=== PATIENT | male | born 1950 | race Caucasian/White ===

== ENCOUNTER 2018-11-21 15:50 | Inpatient (IN) | payer MEDICARE, OTHER ==
[~2018-11-21] VITALS: Ht 167.6 cm; Wt 72.8 kg
[~2018-11-21 15:50] MED LIST: AMLO-147 ORAL; ASPI-817 PO; ATOR40TA68 PO; CLOP75TA28 PO; DOXA1TAB38 PO; DULA1.5P SQ; EMPA10TA ORAL; FINA5TAB4 PO; INSU100I12 SQ; INSU300I SQ; MECL-77 ORAL; METF-849 PO; MYCO250C3 PO; PRED5TAB PO; TACR0.5C ORAL; TERB250T13 PO
[2018-11-21] MEDS ORDERED: SOD CHLORIDE 0.9% 500 ML IV STA (16:15)
[2018-11-21] MEDS ORDERED: SOD CHLORIDE 0.9% 100 ML ONE (17:21)
[2018-11-21] MEDS ORDERED: IOHEXOL 100 ML ONE (17:21)
[2018-11-21] MEDS ORDERED: ONDANSETRON 4 MG TAB PO PRN (18:30)
[2018-11-21] MEDS ORDERED: MECLIZINE 25 MG TAB PO PRN (18:30)
[2018-11-21] MEDS ORDERED: LORAZEPAM 0.5 MG TAB PO PRN (18:30)
[2018-11-21] MEDS ORDERED: ONDANSETRON 4 MG INJ IV PRN (18:30)
[2018-11-21] MEDS ORDERED: NA PHOSPHATE/BIPHOS 133 ML ENEMA PR PRN (18:30)
[2018-11-21] MEDS ORDERED: NACL 0.9% 3 ML SYG IV SCH (18:30)
[2018-11-21] MEDS ORDERED: DOCUSATE SODIUM 100 MG CAP PO PRN (18:30)
[2018-11-21] MEDS ORDERED: ACETAMINOPHEN 325 MG TAB PO PRN ×2 (18:30)
[2018-11-21] MEDS ORDERED: ZOLPIDEM 5 MG TAB PO PRN (18:30)
[2018-11-21] MEDS ORDERED: DEXTROSE 50% 50 ML SYRINGE IV PRN ×2 (19:00)
[2018-11-21] MEDS ORDERED: GLUCOSE GEL 15 GRAM TUBE BUCCAL PRN (19:00)
[2018-11-21] MEDS ORDERED: GLUCAGON 1 MG INJ IM PRN (19:00)
[2018-11-21] MEDS ORDERED: GLUCOSE GEL 15 GRAM TUBE PO PRN ×2 (19:00)
[2018-11-21 19:40] VITALS: Ht 167.6 cm; Wt 72.8 kg
[2018-11-21 20:45] VITALS: BP 161/88; PULSE 91; RESP 19
[2018-11-21 20:55] VITALS: BP 149/76; PULSE 84; RESP 18
[2018-11-21] MEDS: ACCU-CHEK XX SCH ×3 (21:00→21:47)
[2018-11-21] MEDS ORDERED: TACROLIMUS 1 MG CAP PO SCH (21:00)
[2018-11-21] MEDS: INSULIN ASPART [NOVOLOG] 3 ML PEN SC SCH (21:00)
[2018-11-21] MEDS: metFORMIN 500 MG TAB PO SCH (21:00)
[2018-11-21] MEDS ORDERED: INSULIN LISPRO 7 UNIT SQ SCH (21:00)
[2018-11-21] MEDS: FAMOTIDINE 20 MG TAB PO SCH (22:02)
[2018-11-21] MEDS: TACROLIMUS 0.5 MG CAP PO SCH (22:02)
[2018-11-21] MEDS: MYCOPHENOLATE 250 MG CAP PO SCH (22:02)
[2018-11-21] MEDS: HEPARIN 5,000 UNIT/1 ML VIAL SC SCH (22:17)
[2018-11-21 23:30] VITALS: BP 174/84; PULSE 91; RESP 17
[2018-11-22] MEDS ORDERED: DOXAZOSIN 1 MG TAB PO SCH
[2018-11-22 04:00] VITALS: BP 138/84; PULSE 93; RESP 18
[2018-11-22] MEDS: ACCU-CHEK XX SCH ×14 (07:00→21:37)
[2018-11-22 07:06] VITALS: BP 157/81; PULSE 84; RESP 20
[2018-11-22] MEDS ORDERED: CLOPIDOGREL 75 MG TAB PO ONE (08:00)
[2018-11-22] MEDS ORDERED: [UNRECOGNIZED DRUG - OTHER] SQ SCH (09:00)
[2018-11-22] MEDS: HEPARIN 5,000 UNIT/1 ML VIAL SC SCH ×2 (09:00→21:46)
[2018-11-22] MEDS ORDERED: INSULIN GLARGINE HUM REC ANLOG 15 UNIT SQ SCH (09:00)
[2018-11-22] MEDS: INSULIN ASPART [NOVOLOG] 3 ML PEN SC SCH ×3 (09:00→21:00)
[2018-11-22] MEDS ORDERED: ASPIRIN (EC) 81 MG TAB PO SCH (09:00)
[2018-11-22] MEDS: FAMOTIDINE 20 MG TAB PO SCH ×2 (09:51→21:32)
[2018-11-22] MEDS: TACROLIMUS 1 MG CAP PO SCH (09:51)
[2018-11-22] MEDS: predniSONE 5 MG TAB PO SCH (09:51)
[2018-11-22] MEDS: MYCOPHENOLATE 250 MG CAP PO SCH ×2 (09:51→21:25)
[2018-11-22] MEDS: AMLODIPINE 10 MG TAB PO SCH (09:52)
[2018-11-22] MEDS: ASPIRIN 81 MG TAB PO SCH (09:52)
[2018-11-22] MEDS: TERBINAFINE 250 MG TAB PO SCH (09:53)
[2018-11-22] MEDS: metFORMIN 500 MG TAB PO SCH ×2 (09:54→21:25)
[2018-11-22] MEDS: EMPAGLIFLOZIN 10 MG TABLET PO SCH (09:55)
[2018-11-22] MEDS: INSULIN GLARGINE [LANTus] (100 UNITS/ML) SYG SC SCH (10:01)
[2018-11-22 11:30] VITALS: BP 92/57; PULSE 86; RESP 20
[2018-11-22 15:05] VITALS: BP 133/68; PULSE 87; RESP 20
[2018-11-22] MEDS: ARTIFICIAL TEARS 15 ML OPH BOTH EYES SCH ×2 (17:51→21:24)
[2018-11-22] MEDS: CIPROFLOXACIN 500 MG TAB PO SCH (17:54)
[2018-11-22 19:52] VITALS: BP 134/64; PULSE 88; RESP 20
[2018-11-22] MEDS: ATORVASTATIN 40 MG TAB PO SCH (21:24)
[2018-11-22] MEDS: TACROLIMUS 0.5 MG CAP PO SCH (21:30)
[2018-11-22] MEDS: DOXAZOSIN 1 MG TAB PO SCH (21:30)
[2018-11-23 01:20] VITALS: BP 140/67; PULSE 85; RESP 20
[2018-11-23] MEDS: TERBINAFINE 250 MG TAB PO SCH ×3 (02:06→20:54)
[2018-11-23 03:46] VITALS: BP 129/60; PULSE 86; RESP 20
[2018-11-23] MEDS: CIPROFLOXACIN 500 MG TAB PO SCH ×2 (05:59→18:15)
[2018-11-23] MEDS: ACCU-CHEK XX SCH ×14 (06:03→20:55)
[2018-11-23 07:37] VITALS: BP 131/68; PULSE 87; RESP 18
[2018-11-23] MEDS: INSULIN ASPART [NOVOLOG] 3 ML PEN SC SCH ×3 (09:00→21:03)
[2018-11-23] MEDS: INSULIN GLARGINE [LANTus] (100 UNITS/ML) SYG SC SCH (09:00)
[2018-11-23] MEDS: TACROLIMUS 1 MG CAP PO SCH (09:02)
[2018-11-23] MEDS: CLOPIDOGREL 75 MG TAB PO SCH (09:03)
[2018-11-23] MEDS: EMPAGLIFLOZIN 10 MG TABLET PO SCH (09:03)
[2018-11-23] MEDS: ASPIRIN 81 MG TAB PO SCH (09:03)
[2018-11-23] MEDS: metFORMIN 500 MG TAB PO SCH ×2 (09:03→20:55)
[2018-11-23] MEDS: AMLODIPINE 10 MG TAB PO SCH (09:03)
[2018-11-23] MEDS: FAMOTIDINE 20 MG TAB PO SCH ×2 (09:03→20:54)
[2018-11-23] MEDS: predniSONE 5 MG TAB PO SCH (09:04)
[2018-11-23] MEDS: MYCOPHENOLATE 250 MG CAP PO SCH ×2 (09:04→20:54)
[2018-11-23] MEDS: ARTIFICIAL TEARS 15 ML OPH BOTH EYES SCH ×4 (09:06→20:54)
[2018-11-23] MEDS: HEPARIN 5,000 UNIT/1 ML VIAL SC SCH ×2 (09:48→21:03)
[2018-11-23 11:24] VITALS: BP 130/65; PULSE 86; RESP 18
[2018-11-23 15:58] VITALS: BP 136/67; PULSE 87; RESP 18
[2018-11-23 20:31] VITALS: BP 137/64; PULSE 74; RESP 18
[2018-11-23] MEDS: TACROLIMUS 0.5 MG CAP PO SCH (20:54)
[2018-11-23] MEDS: DOXAZOSIN 1 MG TAB PO SCH (20:55)
[2018-11-23] MEDS: ATORVASTATIN 40 MG TAB PO SCH (22:45)
[2018-11-24 00:19] VITALS: BP 134/69; PULSE 96; RESP 18
[2018-11-24 04:37] VITALS: BP 130/73; PULSE 98; RESP 18
[2018-11-24] MEDS: CIPROFLOXACIN 500 MG TAB PO SCH ×2 (06:08→18:38)
[2018-11-24] MEDS: ACCU-CHEK XX SCH ×14 (07:38→21:00)
[2018-11-24] MEDS: INSULIN ASPART [NOVOLOG] 3 ML PEN SC SCH ×3 (07:56→21:00)
[2018-11-24] MEDS: metFORMIN 500 MG TAB PO SCH ×2 (08:06→20:59)
[2018-11-24] MEDS: EMPAGLIFLOZIN 10 MG TABLET PO SCH (08:06)
[2018-11-24 08:07] VITALS: BP 137/66; PULSE 91; RESP 20
[2018-11-24] MEDS: INSULIN GLARGINE [LANTus] (100 UNITS/ML) SYG SC SCH (08:09)
[2018-11-24] MEDS: FAMOTIDINE 20 MG TAB PO SCH ×2 (08:26→22:08)
[2018-11-24] MEDS: CLOPIDOGREL 75 MG TAB PO SCH (08:27)
[2018-11-24] MEDS: AMLODIPINE 10 MG TAB PO SCH (08:29)
[2018-11-24] MEDS: ASPIRIN 81 MG TAB PO SCH (08:29)
[2018-11-24] MEDS: TERBINAFINE 250 MG TAB PO SCH ×2 (08:30→20:59)
[2018-11-24] MEDS: ARTIFICIAL TEARS 15 ML OPH BOTH EYES SCH ×4 (08:30→20:58)
[2018-11-24] MEDS: predniSONE 5 MG TAB PO SCH (08:36)
[2018-11-24] MEDS: TACROLIMUS 1 MG CAP PO SCH (08:37)
[2018-11-24] MEDS: HEPARIN 5,000 UNIT/1 ML VIAL SC SCH ×2 (08:41→21:17)
[2018-11-24] MEDS: MYCOPHENOLATE 250 MG CAP PO SCH ×2 (09:25→20:58)
[2018-11-24 11:26] VITALS: BP 134/65; PULSE 88; RESP 20
[2018-11-24 15:39] VITALS: BP 139/72; PULSE 90; RESP 20
[2018-11-24] MEDS: FINASTERIDE 5 MG TAB PO SCH (18:38)
[2018-11-24 20:00] VITALS: BP 153/72; RESP 20
[2018-11-24] MEDS: ATORVASTATIN 40 MG TAB PO SCH (20:59)
[2018-11-24] MEDS: TACROLIMUS 0.5 MG CAP PO SCH (20:59)
[2018-11-24] MEDS ORDERED: DOXAZOSIN 1 MG TAB PO SCH (21:00)
[2018-11-25] VITALS: BP 142/70; PULSE 91; RESP 18
[2018-11-25 04:00] VITALS: BP 122/60; PULSE 89; RESP 18
[2018-11-25] MEDS: CIPROFLOXACIN 500 MG TAB PO SCH ×2 (05:55→19:00)
[2018-11-25] MEDS: ACCU-CHEK XX SCH ×11 (06:02→17:51)
[2018-11-25 07:14] VITALS: BP 144/76; PULSE 84; RESP 20
[2018-11-25] MEDS: ARTIFICIAL TEARS 15 ML OPH BOTH EYES SCH ×3 (10:12→19:00)
[2018-11-25] MEDS: MYCOPHENOLATE 250 MG CAP PO SCH (10:14)
[2018-11-25] MEDS: FINASTERIDE 5 MG TAB PO SCH (10:14)
[2018-11-25] MEDS: TACROLIMUS 1 MG CAP PO SCH (10:14)
[2018-11-25] MEDS: TERBINAFINE 250 MG TAB PO SCH (10:14)
[2018-11-25] MEDS: metFORMIN 500 MG TAB PO SCH (10:14)
[2018-11-25] MEDS: AMLODIPINE 10 MG TAB PO SCH (10:15)
[2018-11-25] MEDS: EMPAGLIFLOZIN 10 MG TABLET PO SCH (10:15)
[2018-11-25] MEDS: CLOPIDOGREL 75 MG TAB PO SCH (10:15)
[2018-11-25] MEDS: FAMOTIDINE 20 MG TAB PO SCH (10:16)
[2018-11-25] MEDS: predniSONE 5 MG TAB PO SCH (10:16)
[2018-11-25] MEDS: ASPIRIN 81 MG TAB PO SCH (10:16)
[2018-11-25] MEDS: INSULIN ASPART [NOVOLOG] 3 ML PEN SC SCH ×2 (10:25→13:00)
[2018-11-25] MEDS: HEPARIN 5,000 UNIT/1 ML VIAL SC SCH (10:26)
[2018-11-25] MEDS: INSULIN GLARGINE [LANTus] (100 UNITS/ML) SYG SC SCH (10:26)
[2018-11-25] MEDS: HYDROCODONE/APAP (5/325) TAB PO PRN ×2 (11:34→13:04)
[2018-11-25 11:37] VITALS: BP 131/69; PULSE 90; RESP 20
[2018-11-25 15:13] VITALS: BP 160/81; PULSE 96; RESP 20
[2018-11-25 19:33] VITALS: BP 175/83; PULSE 100; RESP 20
== END 2018-11-25 20:20 | DRG 65 ==
LOC: E/R 15:50 → 6WM 18:07 → INTOOBSV 18:11 → OBSVTOIN 18:11
PROVIDERS: ADMIT Internal Medicine; ATTEND Internal Medicine
DX: I63.9 Cerebral infarction, unspecified (principal); Z94.0 Kidney transplant status; N13.8 Other obstructive and reflux uropathy; N40.1 Benign prostatic hyperplasia with lower urinary tract symptoms; R33.8 Other retention of urine; R30.0 Dysuria; H02.401 Unspecified ptosis of right eyelid; R27.0 Ataxia, unspecified; E11.51 Type 2 diabetes mellitus with diabetic peripheral angiopathy without gangrene; G93.0 Cerebral cysts; I10 Essential (primary) hypertension; Z89.421 Acquired absence of other right toe(s); Z79.4 Long term (current) use of insulin; Z79.82 Long term (current) use of aspirin
CPT/HCPCS: 36415; 70450; 70496; 70498; 70544; 70551; 71045; 80053; 80061; 80197; 80307; 81001; 82962; 83036; 83735; 84100; 84153; 84154; 84443; 84484; 85025; 85610; 85651; 85730; 86592; 87086; 92526; 92610; 93005; 93306; 97116; 97162; 97530; G0378; J1644; J1815; J7040; J7507; J7512; J7517; Q9967

== ENCOUNTER 2018-11-25 16:28 | Inpatient (IN) | payer MEDICARE, OTHER ==
[~2018-11-25] VITALS: Ht 165.1 cm; Wt 68.8 kg
[2018-11-25 20:30] VITALS: BP 171/82; PULSE 102; RESP 18
[2018-11-25] MEDS ORDERED: DOXAZOSIN 4 MG TAB PO SCH (21:00)
[2018-11-25 21:20] VITALS: Ht 165.1 cm; Wt 68.8 kg
[2018-11-25] MEDS ORDERED: MECLIZINE 25 MG TAB PO PRN (22:30)
[2018-11-25] MEDS ORDERED: ZOLPIDEM 5 MG TAB PO PRN (22:30)
[2018-11-25] MEDS ORDERED: ONDANSETRON 4 MG TAB PO PRN (22:30)
[2018-11-25] MEDS ORDERED: LORAZEPAM 0.5 MG TAB PO PRN (22:30)
[2018-11-25] MEDS ORDERED: NA PHOSPHATE/BIPHOS 133 ML ENEMA PR PRN (22:30)
[2018-11-25] MEDS ORDERED: MYCOPHENOLATE 250 MG CAP PO ONE (22:30)
[2018-11-25] MEDS ORDERED: GLUCAGON 1 MG INJ IM PRN (23:45)
[2018-11-25] MEDS ORDERED: DEXTROSE 50% 50 ML SYRINGE IV PRN ×2 (23:45)
[2018-11-25] MEDS ORDERED: GLUCOSE GEL 15 GRAM TUBE BUCCAL PRN (23:45)
[2018-11-25] MEDS ORDERED: GLUCOSE GEL 15 GRAM TUBE PO PRN ×2 (23:45)
[2018-11-26] MEDS ORDERED: TACROLIMUS 0.5 MG CAP PO ONE (00:30)
[2018-11-26] MEDS: TERBINAFINE 250 MG TAB PO SCH ×3 (00:53→21:49)
[2018-11-26] MEDS: DOCUSATE SODIUM 100 MG CAP PO SCH ×3 (00:54→21:53)
[2018-11-26] MEDS: ATORVASTATIN 40 MG TAB PO SCH ×2 (00:55→21:48)
[2018-11-26] MEDS: HEPARIN 5,000 UNIT/1 ML VIAL SC SCH ×3 (00:58→21:54)
[2018-11-26] MEDS: ARTIFICIAL TEARS 15 ML OPH BOTH EYES SCH ×5 (01:01→21:47)
[2018-11-26] MEDS: FAMOTIDINE 20 MG TAB PO SCH ×3 (01:09→21:47)
[2018-11-26] MEDS: ONDANSETRON 4 MG TAB PO PRN ×2 (01:38→07:49)
[2018-11-26 02:00] VITALS: BP 167/74; PULSE 94; RESP 18
[2018-11-26 06:00] VITALS: BP 145/67; PULSE 92; RESP 18
[2018-11-26] MEDS: CIPROFLOXACIN 500 MG TAB PO SCH ×2 (06:53→17:21)
[2018-11-26 07:00] VITALS: BP 176/79; PULSE 95; RESP 18
[2018-11-26] MEDS: INSULIN ASPART [NOVOLOG] 3 ML PEN SC SCH ×3 (07:30→17:30)
[2018-11-26] MEDS: metFORMIN 500 MG TAB PO SCH ×2 (07:35→17:33)
[2018-11-26] MEDS: ACCU-CHEK XX SCH ×3 (07:55→17:31)
[2018-11-26] MEDS: INSULIN GLARGINE [LANTus] (100 UNITS/ML) SYG SC SCH (08:00)
[2018-11-26] MEDS: EMPAGLIFLOZIN 10 MG TABLET PO SCH (08:00)
[2018-11-26] MEDS: ASPIRIN 81 MG TAB PO SCH (10:25)
[2018-11-26] MEDS: predniSONE 5 MG TAB PO SCH (10:26)
[2018-11-26] MEDS: FINASTERIDE 5 MG TAB PO SCH (10:27)
[2018-11-26] MEDS: CLOPIDOGREL 75 MG TAB PO SCH (10:27)
[2018-11-26] MEDS: AMLODIPINE 10 MG TAB PO SCH (10:27)
[2018-11-26] MEDS: HYDROCODONE/APAP (5/325) TAB PO PRN (10:37)
[2018-11-26] MEDS: MYCOPHENOLATE 250 MG CAP PO SCH ×2 (10:37→21:53)
[2018-11-26] MEDS: ACETAMINOPHEN 325 MG TAB PO PRN (12:43)
[2018-11-26 14:00] VITALS: BP 160/79; PULSE 85; RESP 18
[2018-11-26 14:14] VITALS: BP 150/72
[2018-11-26 19:45] VITALS: BP 153/67; PULSE 72; RESP 18
[2018-11-26] MEDS ORDERED: TACROLIMUS 1 MG CAP PO SCH (21:00)
[2018-11-26] MEDS: DOXAZOSIN 4 MG TAB PO SCH (21:48)
[2018-11-26] MEDS: TACROLIMUS 0.5 MG CAP PO SCH (21:49)
[2018-11-26] MEDS: MECLIZINE 25 MG TAB PO SCH (21:49)
[2018-11-27] MEDS: METOCLOPRAMIDE 10 MG INJ IV SCH ×5 (00:12→23:42)
[2018-11-27 02:20] VITALS: BP 135/67; PULSE 91; RESP 18
[2018-11-27] MEDS: CIPROFLOXACIN 500 MG TAB PO SCH ×2 (06:46→17:26)
[2018-11-27] MEDS: ACCU-CHEK XX SCH ×5 (07:05→20:15)
[2018-11-27] MEDS: EMPAGLIFLOZIN 10 MG TABLET PO SCH (07:58)
[2018-11-27] MEDS: metFORMIN 500 MG TAB PO SCH ×2 (07:58→17:26)
[2018-11-27 08:00] VITALS: BP 141/67; PULSE 88; RESP 18
[2018-11-27] MEDS: INSULIN ASPART [NOVOLOG] 3 ML PEN SC SCH ×2 (08:02→11:53)
[2018-11-27] MEDS: ARTIFICIAL TEARS 15 ML OPH BOTH EYES SCH ×4 (08:43→20:15)
[2018-11-27] MEDS: CLOPIDOGREL 75 MG TAB PO SCH (08:45)
[2018-11-27] MEDS: AMLODIPINE 10 MG TAB PO SCH (08:46)
[2018-11-27] MEDS: FINASTERIDE 5 MG TAB PO SCH (08:46)
[2018-11-27] MEDS: HEPARIN 5,000 UNIT/1 ML VIAL SC SCH ×2 (08:46→20:21)
[2018-11-27] MEDS: TERBINAFINE 250 MG TAB PO SCH ×2 (08:46→20:27)
[2018-11-27] MEDS: ASPIRIN 81 MG TAB PO SCH (08:46)
[2018-11-27] MEDS: MECLIZINE 25 MG TAB PO SCH ×3 (08:46→20:23)
[2018-11-27] MEDS: FAMOTIDINE 20 MG TAB PO SCH ×2 (08:46→20:27)
[2018-11-27] MEDS: predniSONE 5 MG TAB PO SCH (08:46)
[2018-11-27] MEDS: TACROLIMUS 1 MG CAP PO SCH (08:46)
[2018-11-27] MEDS: DOCUSATE SODIUM 100 MG CAP PO SCH ×2 (08:47→20:27)
[2018-11-27] MEDS ORDERED: TACROLIMUS 1 MG CAP PO SCH (09:00)
[2018-11-27] MEDS: INSULIN GLARGINE [LANTus] (100 UNITS/ML) SYG SC SCH (11:51)
[2018-11-27] MEDS: MYCOPHENOLATE 250 MG CAP PO SCH ×2 (11:52→20:25)
[2018-11-27 15:09] VITALS: BP 139/65; PULSE 91; RESP 18
[2018-11-27] MEDS: NATEGLINIDE 60 MG TAB PO SCH (18:35)
[2018-11-27 19:55] VITALS: BP 142/68; PULSE 92; RESP 18
[2018-11-27] MEDS: DOXAZOSIN 4 MG TAB PO SCH (20:25)
[2018-11-27] MEDS: TACROLIMUS 0.5 MG CAP PO SCH (20:26)
[2018-11-27] MEDS: ATORVASTATIN 40 MG TAB PO SCH (20:26)
[2018-11-28 02:00] VITALS: BP 138/65; PULSE 87; RESP 18
[2018-11-28] MEDS: CIPROFLOXACIN 500 MG TAB PO SCH ×2 (06:33→17:51)
[2018-11-28] MEDS: METOCLOPRAMIDE 10 MG INJ IV SCH (06:34)
[2018-11-28 07:00] VITALS: BP 136/66; PULSE 85; RESP 18
[2018-11-28] MEDS: ACCU-CHEK XX SCH ×6 (07:05→19:35)
[2018-11-28] MEDS: NATEGLINIDE 60 MG TAB PO SCH ×3 (08:03→17:51)
[2018-11-28] MEDS: EMPAGLIFLOZIN 10 MG TABLET PO SCH (08:03)
[2018-11-28] MEDS: metFORMIN 500 MG TAB PO SCH ×2 (08:03→17:51)
[2018-11-28] MEDS: ARTIFICIAL TEARS 15 ML OPH BOTH EYES SCH ×4 (08:17→20:30)
[2018-11-28] MEDS: AMLODIPINE 10 MG TAB PO SCH (08:17)
[2018-11-28] MEDS: TACROLIMUS 1 MG CAP PO SCH (08:18)
[2018-11-28] MEDS: MECLIZINE 25 MG TAB PO SCH ×3 (08:18→20:30)
[2018-11-28] MEDS: ASPIRIN 81 MG TAB PO SCH (08:18)
[2018-11-28] MEDS: predniSONE 5 MG TAB PO SCH (08:18)
[2018-11-28] MEDS: FINASTERIDE 5 MG TAB PO SCH (08:18)
[2018-11-28] MEDS: CLOPIDOGREL 75 MG TAB PO SCH (08:18)
[2018-11-28] MEDS: TERBINAFINE 250 MG TAB PO SCH ×2 (08:18→20:30)
[2018-11-28] MEDS: DOCUSATE SODIUM 100 MG CAP PO SCH ×2 (08:18→20:30)
[2018-11-28] MEDS: MYCOPHENOLATE 250 MG CAP PO SCH ×2 (08:18→20:29)
[2018-11-28] MEDS: FAMOTIDINE 20 MG TAB PO SCH ×2 (08:18→20:29)
[2018-11-28] MEDS: HEPARIN 5,000 UNIT/1 ML VIAL SC SCH ×2 (08:19→22:26)
[2018-11-28] MEDS: METOCLOPRAMIDE 10 MG TAB PO SCH ×3 (12:00→23:16)
[2018-11-28 14:00] VITALS: BP 166/79; PULSE 90; RESP 18
[2018-11-28 15:38] VITALS: BP 145/71; PULSE 81
[2018-11-28 19:53] VITALS: BP 142/67; PULSE 85; RESP 18
[2018-11-28] MEDS: TACROLIMUS 0.5 MG CAP PO SCH (20:30)
[2018-11-28] MEDS: ATORVASTATIN 40 MG TAB PO SCH (20:30)
[2018-11-28] MEDS: DOXAZOSIN 4 MG TAB PO SCH (20:31)
[2018-11-29 02:00] VITALS: BP 138/72; PULSE 90; RESP 18
[2018-11-29] MEDS: CIPROFLOXACIN 500 MG TAB PO SCH ×2 (06:03→17:54)
[2018-11-29] MEDS: METOCLOPRAMIDE 10 MG TAB PO SCH ×3 (06:03→17:54)
[2018-11-29] MEDS: ACCU-CHEK XX SCH ×6 (07:05→19:35)
[2018-11-29 07:30] VITALS: BP 157/77; PULSE 86; RESP 20
[2018-11-29] MEDS: EMPAGLIFLOZIN 10 MG TABLET PO SCH (08:00)
[2018-11-29] MEDS: NATEGLINIDE 60 MG TAB PO SCH ×3 (08:00→17:55)
[2018-11-29] MEDS: metFORMIN 500 MG TAB PO SCH ×2 (08:00→17:54)
[2018-11-29] MEDS: HEPARIN 5,000 UNIT/1 ML VIAL SC SCH ×2 (09:14→20:51)
[2018-11-29] MEDS: ARTIFICIAL TEARS 15 ML OPH BOTH EYES SCH ×4 (09:14→20:33)
[2018-11-29] MEDS: TACROLIMUS 1 MG CAP PO SCH (09:15)
[2018-11-29] MEDS: TERBINAFINE 250 MG TAB PO SCH ×2 (09:15→20:31)
[2018-11-29] MEDS: FINASTERIDE 5 MG TAB PO SCH (09:15)
[2018-11-29] MEDS: CLOPIDOGREL 75 MG TAB PO SCH (09:15)
[2018-11-29] MEDS: MYCOPHENOLATE 250 MG CAP PO SCH ×2 (09:15→20:32)
[2018-11-29] MEDS: predniSONE 5 MG TAB PO SCH (09:15)
[2018-11-29] MEDS: ASPIRIN 81 MG TAB PO SCH (09:16)
[2018-11-29] MEDS: AMLODIPINE 10 MG TAB PO SCH (09:16)
[2018-11-29] MEDS: DOCUSATE SODIUM 100 MG CAP PO SCH ×2 (09:16→20:31)
[2018-11-29] MEDS: MECLIZINE 25 MG TAB PO SCH ×3 (09:16→20:32)
[2018-11-29] MEDS: FAMOTIDINE 20 MG TAB PO SCH ×2 (09:24→20:31)
[2018-11-29 14:00] VITALS: BP 143/69; PULSE 86; RESP 18
[2018-11-29 19:47] VITALS: BP 136/73; PULSE 86; RESP 19
[2018-11-29] MEDS: TACROLIMUS 0.5 MG CAP PO SCH (20:31)
[2018-11-29] MEDS: DOXAZOSIN 4 MG TAB PO SCH (20:31)
[2018-11-29] MEDS: ATORVASTATIN 40 MG TAB PO SCH (20:32)
[2018-11-30 02:58] VITALS: BP 144/81; PULSE 82; RESP 19
[2018-11-30] MEDS: METOCLOPRAMIDE 10 MG TAB PO SCH ×4 (06:40→17:21)
[2018-11-30 07:00] VITALS: BP 158/75; PULSE 78; RESP 18
[2018-11-30] MEDS: ACCU-CHEK XX SCH ×6 (07:05→19:35)
[2018-11-30] MEDS: EMPAGLIFLOZIN 10 MG TABLET PO SCH (07:46)
[2018-11-30] MEDS: NATEGLINIDE 60 MG TAB PO SCH ×3 (07:46→17:21)
[2018-11-30] MEDS: metFORMIN 500 MG TAB PO SCH ×2 (07:46→17:21)
[2018-11-30] MEDS: FAMOTIDINE 20 MG TAB PO SCH ×2 (09:41→21:26)
[2018-11-30] MEDS: CLOPIDOGREL 75 MG TAB PO SCH (09:41)
[2018-11-30] MEDS: ASPIRIN 81 MG TAB PO SCH (09:41)
[2018-11-30] MEDS: ARTIFICIAL TEARS 15 ML OPH BOTH EYES SCH ×4 (09:41→21:26)
[2018-11-30] MEDS: MYCOPHENOLATE 250 MG CAP PO SCH ×2 (09:42→21:30)
[2018-11-30] MEDS: MECLIZINE 25 MG TAB PO SCH ×3 (09:42→21:30)
[2018-11-30] MEDS: AMLODIPINE 10 MG TAB PO SCH (09:42)
[2018-11-30] MEDS: DOCUSATE SODIUM 100 MG CAP PO SCH ×2 (09:42→21:26)
[2018-11-30] MEDS: FINASTERIDE 5 MG TAB PO SCH (09:49)
[2018-11-30] MEDS: TACROLIMUS 1 MG CAP PO SCH (09:54)
[2018-11-30] MEDS: TERBINAFINE 250 MG TAB PO SCH ×2 (09:55→21:26)
[2018-11-30] MEDS: predniSONE 5 MG TAB PO SCH (09:55)
[2018-11-30] MEDS: HEPARIN 5,000 UNIT/1 ML VIAL SC SCH ×2 (10:04→21:39)
[2018-11-30 14:00] VITALS: BP 130/71; PULSE 80; RESP 18
[2018-11-30 20:00] VITALS: BP 125/67; PULSE 89; RESP 18
[2018-11-30] MEDS: DOXAZOSIN 4 MG TAB PO SCH (21:28)
[2018-11-30] MEDS: ATORVASTATIN 40 MG TAB PO SCH (21:28)
[2018-11-30] MEDS: TACROLIMUS 0.5 MG CAP PO SCH (21:29)
[2018-12-01] MEDS: METOCLOPRAMIDE 10 MG TAB PO SCH ×5 (00:41→23:54)
[2018-12-01 02:00] VITALS: BP 143/72; PULSE 66; RESP 18
[2018-12-01] MEDS: HYDROCODONE/APAP (5/325) TAB PO PRN (04:49)
[2018-12-01 07:00] VITALS: BP 153/59; PULSE 75; RESP 18
[2018-12-01] MEDS: ACCU-CHEK XX SCH ×6 (08:13→20:21)
[2018-12-01] MEDS: EMPAGLIFLOZIN 10 MG TABLET PO SCH (08:14)
[2018-12-01] MEDS: metFORMIN 500 MG TAB PO SCH ×2 (08:14→17:32)
[2018-12-01] MEDS: NATEGLINIDE 60 MG TAB PO SCH ×3 (08:14→17:33)
[2018-12-01 08:56] VITALS: BP 133/70; PULSE 86
[2018-12-01] MEDS: ARTIFICIAL TEARS 15 ML OPH BOTH EYES SCH ×4 (08:57→21:57)
[2018-12-01] MEDS: FINASTERIDE 5 MG TAB PO SCH (08:58)
[2018-12-01] MEDS: HEPARIN 5,000 UNIT/1 ML VIAL SC SCH ×2 (08:58→21:49)
[2018-12-01] MEDS: DOCUSATE SODIUM 100 MG CAP PO SCH ×2 (08:58→21:58)
[2018-12-01] MEDS: MYCOPHENOLATE 250 MG CAP PO SCH ×2 (08:58→21:59)
[2018-12-01] MEDS: AMLODIPINE 10 MG TAB PO SCH (08:59)
[2018-12-01] MEDS: CLOPIDOGREL 75 MG TAB PO SCH (08:59)
[2018-12-01] MEDS: predniSONE 5 MG TAB PO SCH (08:59)
[2018-12-01] MEDS: TERBINAFINE 250 MG TAB PO SCH ×2 (08:59→21:58)
[2018-12-01] MEDS: FAMOTIDINE 20 MG TAB PO SCH ×2 (08:59→21:58)
[2018-12-01] MEDS: MECLIZINE 25 MG TAB PO SCH ×3 (08:59→21:58)
[2018-12-01] MEDS: TACROLIMUS 1 MG CAP PO SCH (08:59)
[2018-12-01] MEDS: ASPIRIN 81 MG TAB PO SCH (08:59)
[2018-12-01] MEDS: ACETAMINOPHEN 325 MG TAB PO PRN (09:07)
[2018-12-01 14:00] VITALS: BP 106/75; PULSE 91; RESP 18
[2018-12-01 20:00] VITALS: BP 125/63; PULSE 80; RESP 18
[2018-12-01] MEDS: ATORVASTATIN 40 MG TAB PO SCH (21:58)
[2018-12-01] MEDS: DOXAZOSIN 4 MG TAB PO SCH (21:59)
[2018-12-01] MEDS: TACROLIMUS 0.5 MG CAP PO SCH (21:59)
[2018-12-02 02:31] VITALS: BP 144/68; PULSE 77; RESP 18
[2018-12-02] MEDS: METOCLOPRAMIDE 10 MG TAB PO SCH ×3 (06:31→17:32)
[2018-12-02 07:00] VITALS: BP 155/75; PULSE 75; RESP 18
[2018-12-02] MEDS: ACCU-CHEK XX SCH ×6 (07:05→19:35)
[2018-12-02] MEDS: EMPAGLIFLOZIN 10 MG TABLET PO SCH (08:00)
[2018-12-02] MEDS: ARTIFICIAL TEARS 15 ML OPH BOTH EYES SCH ×4 (08:00→20:47)
[2018-12-02] MEDS: NATEGLINIDE 60 MG TAB PO SCH ×3 (08:01→17:32)
[2018-12-02] MEDS: metFORMIN 500 MG TAB PO SCH ×2 (08:01→17:32)
[2018-12-02] MEDS: MYCOPHENOLATE 250 MG CAP PO SCH ×2 (12:14→20:48)
[2018-12-02] MEDS: CLOPIDOGREL 75 MG TAB PO SCH (12:16)
[2018-12-02] MEDS: FAMOTIDINE 20 MG TAB PO SCH ×2 (12:16→20:47)
[2018-12-02] MEDS: TERBINAFINE 250 MG TAB PO SCH ×2 (12:17→20:47)
[2018-12-02] MEDS: DOCUSATE SODIUM 100 MG CAP PO SCH ×2 (12:18→20:47)
[2018-12-02] MEDS: FINASTERIDE 5 MG TAB PO SCH (12:18)
[2018-12-02] MEDS: MECLIZINE 25 MG TAB PO SCH ×3 (12:18→20:47)
[2018-12-02] MEDS: ASPIRIN 81 MG TAB PO SCH (12:19)
[2018-12-02] MEDS: predniSONE 5 MG TAB PO SCH (12:19)
[2018-12-02] MEDS: TACROLIMUS 1 MG CAP PO SCH (12:19)
[2018-12-02] MEDS: AMLODIPINE 5 MG TAB PO SCH (12:23)
[2018-12-02] MEDS: HEPARIN 5,000 UNIT/1 ML VIAL SC SCH ×2 (12:28→20:50)
[2018-12-02 14:00] VITALS: BP 135/80; PULSE 74; RESP 18
[2018-12-02 19:48] VITALS: BP 128/60; PULSE 79; RESP 18
[2018-12-02] MEDS: TACROLIMUS 0.5 MG CAP PO SCH (20:47)
[2018-12-02] MEDS: ATORVASTATIN 40 MG TAB PO SCH (20:47)
[2018-12-02] MEDS: DOXAZOSIN 4 MG TAB PO SCH (20:48)
[2018-12-03] MEDS: METOCLOPRAMIDE 10 MG TAB PO SCH ×4 (00:23→17:30)
[2018-12-03 02:00] VITALS: BP_SYST 127; BP_SYST 132; BP_DIAS 67; BP_DIAS 72; PULSE 75; PULSE 78; RESP 18
[2018-12-03 08:00] VITALS: BP 129/62; PULSE 78; RESP 18
[2018-12-03] MEDS: EMPAGLIFLOZIN 10 MG TABLET PO SCH (08:12)
[2018-12-03] MEDS: NATEGLINIDE 60 MG TAB PO SCH ×3 (08:13→17:30)
[2018-12-03] MEDS: metFORMIN 500 MG TAB PO SCH ×2 (08:13→17:30)
[2018-12-03] MEDS: ACCU-CHEK XX SCH ×6 (08:13→19:35)
[2018-12-03] MEDS: MYCOPHENOLATE 250 MG CAP PO SCH ×2 (09:32→21:38)
[2018-12-03] MEDS: TACROLIMUS 1 MG CAP PO SCH (09:33)
[2018-12-03] MEDS: CLOPIDOGREL 75 MG TAB PO SCH (09:34)
[2018-12-03] MEDS: FINASTERIDE 5 MG TAB PO SCH (09:36)
[2018-12-03] MEDS: predniSONE 5 MG TAB PO SCH (09:36)
[2018-12-03] MEDS: DOCUSATE SODIUM 100 MG CAP PO SCH ×2 (09:37→21:37)
[2018-12-03] MEDS: FAMOTIDINE 20 MG TAB PO SCH ×2 (09:38→21:40)
[2018-12-03] MEDS: ASPIRIN 81 MG TAB PO SCH (09:38)
[2018-12-03] MEDS: MECLIZINE 25 MG TAB PO SCH ×3 (09:39→21:40)
[2018-12-03] MEDS: AMLODIPINE 5 MG TAB PO SCH (09:39)
[2018-12-03] MEDS: ARTIFICIAL TEARS 15 ML OPH BOTH EYES SCH ×4 (09:44→21:36)
[2018-12-03] MEDS: HEPARIN 5,000 UNIT/1 ML VIAL SC SCH ×2 (09:53→21:50)
[2018-12-03 14:00] VITALS: BP 124/64; PULSE 77; RESP 17
[2018-12-03 19:56] VITALS: BP 124/70; PULSE 75; RESP 18
[2018-12-03] MEDS: ATORVASTATIN 40 MG TAB PO SCH (21:37)
[2018-12-03] MEDS: TACROLIMUS 0.5 MG CAP PO SCH (21:38)
[2018-12-03] MEDS: DOXAZOSIN 4 MG TAB PO SCH (21:39)
[2018-12-04] MEDS: METOCLOPRAMIDE 10 MG TAB PO SCH ×4 (00:18→17:07)
[2018-12-04 02:00] VITALS: BP 130/68; PULSE 82; RESP 18
[2018-12-04] MEDS: ACCU-CHEK XX SCH ×6 (07:05→19:35)
[2018-12-04 07:30] VITALS: BP 144/70; PULSE 75; RESP 18
[2018-12-04] MEDS: NATEGLINIDE 60 MG TAB PO SCH ×3 (07:44→17:07)
[2018-12-04] MEDS: EMPAGLIFLOZIN 10 MG TABLET PO SCH (07:44)
[2018-12-04] MEDS: metFORMIN 500 MG TAB PO SCH ×2 (07:44→17:07)
[2018-12-04] MEDS: ARTIFICIAL TEARS 15 ML OPH BOTH EYES SCH ×4 (08:38→20:45)
[2018-12-04] MEDS: ASPIRIN 81 MG TAB PO SCH (08:39)
[2018-12-04] MEDS: MYCOPHENOLATE 250 MG CAP PO SCH ×2 (08:39→20:45)
[2018-12-04] MEDS: AMLODIPINE 5 MG TAB PO SCH (08:39)
[2018-12-04] MEDS: FAMOTIDINE 20 MG TAB PO SCH ×2 (08:40→20:44)
[2018-12-04] MEDS: CLOPIDOGREL 75 MG TAB PO SCH (08:40)
[2018-12-04] MEDS: TACROLIMUS 1 MG CAP PO SCH (08:40)
[2018-12-04] MEDS: FINASTERIDE 5 MG TAB PO SCH (08:40)
[2018-12-04] MEDS: predniSONE 5 MG TAB PO SCH (08:41)
[2018-12-04] MEDS: MECLIZINE 25 MG TAB PO SCH ×3 (08:41→20:45)
[2018-12-04] MEDS: DOCUSATE SODIUM 100 MG CAP PO SCH ×2 (08:41→20:43)
[2018-12-04] MEDS: HEPARIN 5,000 UNIT/1 ML VIAL SC SCH ×2 (08:42→20:49)
[2018-12-04] MEDS: ACETAMINOPHEN 325 MG TAB PO PRN (10:43)
[2018-12-04 14:00] VITALS: BP 142/71; PULSE 76; RESP 20
[2018-12-04 19:34] VITALS: BP 132/62; PULSE 77; RESP 18
[2018-12-04] MEDS: DOXAZOSIN 4 MG TAB PO SCH (20:44)
[2018-12-04] MEDS: ATORVASTATIN 40 MG TAB PO SCH (20:45)
[2018-12-04] MEDS: TACROLIMUS 0.5 MG CAP PO SCH (20:45)
[2018-12-05] MEDS: METOCLOPRAMIDE 10 MG TAB PO SCH ×3 (00:19→12:14)
[2018-12-05 02:00] VITALS: BP 127/67; PULSE 80; RESP 18
[2018-12-05 07:30] VITALS: BP 134/69; PULSE 75; RESP 18
[2018-12-05] MEDS: ACCU-CHEK XX SCH ×3 (07:58→11:52)
[2018-12-05] MEDS: metFORMIN 500 MG TAB PO SCH (07:59)
[2018-12-05] MEDS: ARTIFICIAL TEARS 15 ML OPH BOTH EYES SCH ×2 (08:00→12:15)
[2018-12-05] MEDS: NATEGLINIDE 60 MG TAB PO SCH ×2 (08:00→12:14)
[2018-12-05] MEDS: EMPAGLIFLOZIN 10 MG TABLET PO SCH (08:00)
[2018-12-05] MEDS: CLOPIDOGREL 75 MG TAB PO SCH (09:37)
[2018-12-05] MEDS: MYCOPHENOLATE 250 MG CAP PO SCH (09:37)
[2018-12-05] MEDS: TACROLIMUS 1 MG CAP PO SCH (09:37)
[2018-12-05] MEDS: FAMOTIDINE 20 MG TAB PO SCH (09:38)
[2018-12-05] MEDS: FINASTERIDE 5 MG TAB PO SCH (09:38)
[2018-12-05] MEDS: MECLIZINE 25 MG TAB PO SCH ×2 (09:38→12:14)
[2018-12-05] MEDS: ASPIRIN 81 MG TAB PO SCH (09:38)
[2018-12-05] MEDS: predniSONE 5 MG TAB PO SCH (09:39)
[2018-12-05] MEDS: DOCUSATE SODIUM 100 MG CAP PO SCH (09:39)
[2018-12-05] MEDS: AMLODIPINE 5 MG TAB PO SCH (09:39)
[2018-12-05] MEDS: HEPARIN 5,000 UNIT/1 ML VIAL SC SCH (09:44)
== END 2018-12-05 13:30 | disposition home health service (06) | DRG 64 ==
LOC: VRC 20:33
PROVIDERS: ADMIT Physical Medicine & Rehabilitation; ATTEND Internal Medicine
PROC: F07Z5ZZ Bed Mobility Treatment (ICD-10-PCS; principal; 2018-11-25)
PROC: F08Z2ZZ Grooming/Personal Hygiene Treatment (ICD-10-PCS; 2018-11-25)
PROC: F06Z6ZZ Communicative/Cognitive Integration Skills Treatment (ICD-10-PCS; 2018-11-25)
DX: I63.312 Cerebral infarction due to thrombosis of left middle cerebral artery (principal); N18.6 End stage renal disease; Z94.0 Kidney transplant status; I12.0 Hypertensive chronic kidney disease with stage 5 chronic kidney disease or end stage renal disease; G81.94 Hemiplegia, unspecified affecting left nondominant side; R11.2 Nausea with vomiting, unspecified; N40.0 Benign prostatic hyperplasia without lower urinary tract symptoms; E11.51 Type 2 diabetes mellitus with diabetic peripheral angiopathy without gangrene; F06.31 Mood disorder due to known physiological condition with depressive features; F32.9 Major depressive disorder, single episode, unspecified; E11.22 Type 2 diabetes mellitus with diabetic chronic kidney disease; Z89.421 Acquired absence of other right toe(s); G62.9 Polyneuropathy, unspecified; E11.43 Type 2 diabetes mellitus with diabetic autonomic (poly)neuropathy; K31.84 Gastroparesis; R42 Dizziness and giddiness
CPT/HCPCS: 70551; 80053; 81003; 82962; 85025; 87081; 87086; 92523; 97110; 97112; 97116; 97163; 97530; 97535; J1644; J1815; J2765; J7507; J7512; J7517